=== PATIENT | male | born 1995 | race Caucasian/White ===

== ENCOUNTER 2017-11-04 13:25 | Emergency (ER) | payer MEDICAID, SELFPAY ==
[2017-11-04 13:26] VITALS: BP 139/82; PULSE 86; RESP 18; TEMP 36.6; O2SAT 98; BMI 25.8
--- NOTE | 2017-11-04 14:03 | ED.VISSUMM ---
- ER Visit Summary Date of Service: 11/04/17 Chief Complaint: Blackout History of Present Illness: The patient is a 21 M with a history of epilepsy who presents with a blackout. He does note that he forgot to take his seizure medication last night. He came in and sat down today. He states there is about a 2-3 minute. That he is unable to recall. He denies any complaints currently. No fever chest pain shortness of breath vomiting diarrhea recent illness rashes headaches. He did not bite his tongue. He was not incontinent. Physical Examination: Afebrile vitals are stable Heart regular rate and rhythm Lungs are clear Abdomen soft Alert and oriented with no focal or lateralizing neurological deficits normal strength and sensation Test Results: None indicated Emergency Department Course and Treatment: I suspect the patient's symptoms today were due to a breakthrough seizure. He has normal neurological exam and no complaints currently. He was advised to take his dose of seizure medication when he gets home tonight. He was unable to recall exactly what he takes. He was also advised to follow-up with his neurologist. He understands return for new or worsening symptoms. He was discharged. Treatment Plan: [] Disposition: Discharge Impression: Seizure This note was generated with [employer] dictation software. It may contain incorrect words, spelling, and punctuation that were not noted in review of the chart prior to signing ED Disposition - Plan for ED Patient: Chief Complaint: Seizure Referrals: Care Physician,No Primary [Primary Care Provider] -
--- NOTE | 2017-11-04 14:05 | ED.DEP ---
ED Disposition - Plan for ED Patient: Chief Complaint: Seizure Instructions: ED Seizure Recurrent Referrals: Care Physician,No Primary [Primary Care Provider] -
[2017-11-04 14:27] VITALS: BP 135/79; PULSE 56; RESP 16
== END 2017-11-04 14:29 | disposition home or self-care (01) ==
LOC: ED 14:11
PROVIDERS: Emergency Provider Emergency Medicine
DX: G40.909 Epilepsy, unspecified, not intractable, without status epilepticus (principal); Z72.0 Tobacco use
CPT/HCPCS: 99282

== ENCOUNTER 2019-12-04 00:39 | Emergency (ER) | payer SELFPAY ==
[2019-12-04 00:39] VITALS: BP 155/87; PULSE 90; RESP 18; TEMP 36.4; O2SAT 100; BMI 32.9
[2019-12-04 01:14] LABS: Bacteria 0 SEEN /hpf (None Seen); Color, Urine Yellow (Yellow); Glucose, Dipstick Normal (Normal); Ketone-Dipstick Negative (Negative); Leukocyte Esterase-Dipstick 100 /ul (Negative); Mucous, Urine 0 SEEN /hpf (<or=2+); Nitrite-Dipstick Negative (Negative); Occult Blood-Urine 10 /ul (Negative); Protein-Dipstick 15 mg/dl (Negative); Specific Gravity, Urine 1.025 (1.002-1.030); Squamous Epithelial Cells - UA 0 SEEN /hpf (0-5); Urine Bilirubin Dipstick Negative (Negative); Urine Clarity Clear (Clear); Urine Urobilinogen Normal (Normal)
--- NOTE | 2019-12-04 01:14 | ED.VISSUMM ---
- ER Visit Summary Date of Service: 12/04/19 Chief Complaint: Possible sexually transmitted disease History of Present Illness: The patient is a 24 M who presents with urethral discharge for the past 2 to 3 days. Patient states it is gradually gotten worse. Patient admits to some discomfort while urinating. Patient describes his discharge as white. Patient denies any fevers or chills. Patient denies any nausea or vomiting. Patient denies any testicular pain. Patient denies any urinary urgency or frequency. Physical Examination: Vital signs are stable. Patient is afebrile. Patient is in no acute distress. Oral mucosa is pink and moist. Neck is supple. Trachea is midline. There is no JVD. Heart was regular rate and rhythm. Lungs are clear and equal bilaterally. Abdomen is soft. Bowel sounds are normal. There is no tenderness. Genitourinary exam reveals a circumcised male. There are no penile lesions. There is no testicular tenderness. There is no inguinal tenderness or masses noted. Cranial nerves II through XII are intact. There are no focal motor or sensory deficits. Test Results: Urinalysis was obtained. Leukocyte esterase was 100 with 5-10 white blood cells. GC and Chlamydia cultures were sent. Emergency Department Course and Treatment: Patient was given Rocephin and Zithromax here. Patient was instructed to follow-up with a primary care physician in 5 to 7 days. Patient states he does not have a primary care physician. Patient was provided a primary care physician who is next on-call for unassigned patients. Patient understood and was agreeable with the plan. All questions were answered. Disposition: Discharge home Impression: Urethritis This note was generated with [employer] dictation software. It may contain incorrect words, spelling, and punctuation that were not noted in review of the chart prior to signing ED Disposition - Plan for ED Patient: Disposition: Home or Assisted Living Diagnosis: Urethritis Instructions: ED STI Male Treated Referrals: Hang Faith MD [STAFF PHYSICIAN] - 5-7 Days
[2019-12-04 01:20] LABS: Red Blood Cells-Urine 0-5 SEEN /hpf (0-5); White Blood Cells 5-10 SEEN /hpf (0-5)
[2019-12-04] MEDS: Ceftriaxone 500 MG Vial 250 MG IM (01:38)
[2019-12-04] MEDS: Azithromycin 250 MG Tablet 1000 MG PO (01:38)
[2019-12-04 02:59] LABS: Chlamydia Trachomatis by PCR Negative (Negative); Neisserai gonorrhoeae by PCR Negative (Negative); Probe Check PASS; Sample Adequacy Control PASS; Specimen Processing Control PASS
== END 2019-12-04 02:02 | disposition home or self-care (01) ==
PROVIDERS: Emergency Provider Emergency Medicine
DX: N34.2 Other urethritis (principal); R51 Headache
CPT/HCPCS: 81001; 87491; 87591; 96372; 99283

== ENCOUNTER 2019-12-07 12:16 | Emergency (ER) | payer SELFPAY ==
[2019-12-07 12:17] VITALS: BP 164/105; PULSE 109; RESP 16; TEMP 36.3; O2SAT 100; BMI 30.4
--- NOTE | 2019-12-07 13:00 | ED.DCSUM_ITS ---
- ER Visit Summary Date of Service: 12/07/19 Chief Complaint: Dysuria History of Present Illness: The patient is a 24 M who presents with dysuria that has been constant for the past several days. Patient was seen here 3 days ago and was treated for sexually transmitted disease. Patient was given Rocephin and Zithromax here. Patient had GC and Chlamydia cultures done at that time. Patient states he is still having some discharge and burning with urination. Patient denies any nausea or vomiting. Patient denies any abdominal pain. Patient denies any testicular pain or swelling. Patient states he has had only one sexual partner over the past 3 months. Physical Examination: Vital signs are stable. Patient is afebrile. Patient is in no acute distress. Oral mucosa is pink and moist. Neck is supple. Trachea is midline there is no JVD. Heart was regular rate and rhythm. Lungs are clear and equal bilaterally. Abdomen is soft. Bowel sounds are normal. There is no tenderness. Genitourinary exam shows some mild urethral discharge. There is some mild erythema at the urethral meatus. There are no external penile lesions. There are no ulcerations. There are no testicular masses or tenderness. Test Results: Wet prep was sent for trichomonas and was negative. Emergency Department Course and Treatment: Patient was given a dose of Flagyl here prior to trichomonas results. Patient was given a prescription for Bactrim to cover for other urinary tract infection pathogens. Patient was instructed to follow-up with his primary care physician in 5 to 7 days for reevaluation. Patient was instructed to avoid alcohol. Patient was instructed return if worse in any way. Patient understood and was agreeable with the plan. All questions were answered. Disposition: Discharge home Impression: Urethritis This note was generated with [employer] dictation software. It may contain incorrect words, spelling, and punctuation that were not noted in review of the chart prior to signing ED Disposition - Plan for ED Patient: Disposition: Home or Assisted Living Instructions: ED Urethritis Infec Vs Inflam Adult Male, ED STI Male Treated Prescriptions: Smz/Tmp Ds [Bactrim Ds] 1 tab PO BID #6 tab Prescription Printed Referrals: Hang Faith MD [STAFF PHYSICIAN] - 5-7 Days
[2019-12-07] MEDS: metroNIDAZOLE 500 MG Tablet 2000 MG PO (13:28)
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
[2019-12-07 15:31] LABS: Probe Check PASS; Sample Adequacy Control PASS; Specimen Processing Control PASS; Trichomonas Vag DNA by PCR Negative (Negative)
== END 2019-12-07 15:44 | disposition home or self-care (01) ==
PROVIDERS: Emergency Provider Emergency Medicine
DX: N34.2 Other urethritis (principal)
CPT/HCPCS: 87661; 99283

== ENCOUNTER 2021-03-07 06:56 | Emergency (ER) | payer SELFPAY ==
[2021-03-07 06:57] VITALS: BP 171/99; PULSE 87; RESP 18; TEMP 36.8; O2SAT 95; BMI 34.7
--- NOTE | 2021-03-07 07:08 | EDS_ITS ---
HPI HPI - URI History of Present Illness Chief Complaint: Ear Problem Informant: patient Narrative Narrative: 25-year-old male presents the emergency room with decreased hearing of the left ear and pain. Patient states symptoms began around Wednesday. He had used an earwax removal system and notes continued symptoms of decreased hearing. He states that he frequently had ear infections as a child but did not get tympanostomy tubes. No reported fever. He notes some mild sore throat and rhinorrhea. ROS ROS ED Constitutional Constitutional ED: Denies chills or weight loss Eyes Eyes: Denies change in vision or diplopia ENT ENT ED: Reports ear pain, rhinorrhea, sore throat and other Details: Decreased hearing left ear Cardiovascular Cardiovascular: Denies chest pain, orthopnea, palpitations or racing heartbeat Respiratory/Chest Respiratory/Chest: Denies cough, dyspnea or orthopnea Gastrointestinal Gastrointestinal: Denies abdominal pain, diarrhea, nausea or vomiting Genitourinary Genitourinary ED: Denies dysuria, hematuria or urinary frequency Musculoskeletal Musculoskeletal: Denies arthralgias or myalgias Integumentary Denies abscess or rash Neurologic Neurologic: Denies headache(s) or weakness Psychiatric Psychiatric: Denies anxiety, depression, suicidal ideation or suicidal thoughts Endocrine Endocrinology: Denies polydipsia, polyphagia or polyuria Allergic/Immunologic Allergic/Immunologic ED: Denies mouth swelling, tongue swelling or urticaria PFSH PFSH Medical History no medical history no medical history Home Medications sulfamethoxazole-trimethoprim 1 tab PO BID #6 tab 12/07/19 [Rx Last Taken Unknown] cefdinir 300 mg PO BID #20 cap 03/07/21 [Rx Last Taken Unknown] Allergy/AdvReac Type Severity Reaction Status Date / Time latex Allergy Rash Verified 03/07/21 06:59 Penicillins Allergy Unknown Verified 03/07/21 06:59 Social History (Updated 03/07/21 @ 07:[address] Emmanuel Moran, DO) current gender identity: male Smoking Status: Current every day smoker tobacco type: cigarettes EXAM Physical Exam Const Vital Signs: 03/07/21 06:57 Temperature 98.2 F Temperature Source Temporal Pulse Rate 87 Respiratory Rate 18 Blood Pressure 171/99 H Blood Pressure Mean 123 Pulse Ox 95 Oxygen Delivery Method Room Air Positive well nourished and well developed General Appearance ED: well developed HEENT Reports normocephalic, head/scalp atraumatic and moist mucous membranes HEENT Narrative: Left tympanic membrane is erythematous with evidence of effusion decreased landmarks. normocephalic and atraumatic External Ear: external ears normal and mastoids normal Throat: posterior oropharynx normal Eyes PERRL and EOMs intact bilaterally Neck no lymphadenopathy, supple and no JVD Resp normal respiratory effort and clear to auscultation bilaterally Cardio regular rate, regular rhythm and no murmurs GI normal to inspection, nondistended, normoactive bowel sounds and non-tender Auscultation: normoactive bowel sounds Palpation: soft Back/Spine no CVA tenderness and normal ROM Extremity normal to inspection General Extremety ED: Negative for edema General Extremity: Negative for edema Neuro oriented x3 and CN's II-XII intact bilaterally Sensorium / Orientation: alert Motor Exam: strength 5/5 throughout Psych mental status grossly normal Mood & Affect: Negative for depressed or tearful Skin no rashes or lesions noted and no wounds MDM MDM MDM Narrative Medical decision making narrative: Clinically the patient has a left otitis media will be started on cefdinir. Follow-up with primary care if not improving return if worsening or concerns Discharge Plan Triage Chief Complaint: Ear Problem ED Provider: Emmanuel Moran Dx/Rx/DC Orders Clinical Impression: Acute left otitis media Instructions: ED Otitis Media Antibiotic ... Prescriptions: New cefdinir 300 mg capsule 300 mg PO BID Qty: 20 RF: 0 No Action sulfamethoxazole-trimethoprim 1 TABLET tablet 1 tab PO BID Qty: 6 RF: 0 Primary Care Provider: Care Physician,No Primary Referrals: Care Physician,No Primary [Primary Care Provider] - Saul Mariscal VEHICLE MONITOR TECHNICIAN, VEHICLE MONITOR TECHNICIAN-C [Nurse Practitioner] - As Needed (FOR PRIMARY CARE) Disposition Disposition: Home, Self Care
== END 2021-03-07 07:24 | disposition home or self-care (01) ==
LOC: ED 07:19
PROVIDERS: Emergency Provider Emergency Medicine
DX: H66.92 Otitis media, unspecified, left ear (principal); J02.9 Acute pharyngitis, unspecified; J34.89 Other specified disorders of nose and nasal sinuses; F17.210 Nicotine dependence, cigarettes, uncomplicated
CPT/HCPCS: 99282

== ENCOUNTER 2022-02-26 10:20 | Emergency (ER) | payer BC, SELFPAY ==
[2022-02-26 10:21] VITALS: BP 163/112; PULSE 113; RESP 18; TEMP 37.4; O2SAT 98; BMI 30.4
[2022-02-26] MEDS: Ondansetron ODT 4 MG Tablet PO (11:38)
--- NOTE | 2022-02-26 12:23 | EX.ED.VIS.UR ---
HPI HPI - URI History of Present Illness Chief Complaint: Cough Narrative Narrative: 26-year-old male with cough, fever, chills, body aches for the course of the last week. He states he was in urgent care yesterday and tested for COVID-19 and influenza and these were negative. He states he wants to know what it is exactly have. He is not short of breath. He has some nausea and is vomiting a little bit. He is able to hold down some food and fluids. He states he has no known medical problems. He is not having chest pain or shortness of breath. ROS ROS ED Review of Systems ROS Unobtainable: due to encephalopathy Constitutional Constitutional ED: Reports chills and fever(s) Eyes Eyes: Denies change in vision or diplopia ENT ENT ED: Denies rhinorrhea or sore throat Cardiovascular Cardiovascular: Denies chest pain or palpitations Respiratory/Chest Respiratory/Chest: Denies cough or dyspnea Gastrointestinal Gastrointestinal: Denies abdominal pain Genitourinary Genitourinary ED: Denies dysuria or hematuria Musculoskeletal Musculoskeletal: Denies arthralgias or back pain Integumentary Denies abscess or Abrasions Neurologic Neurologic: Reports headache(s); Denies paresthesias Psychiatric Psychiatric: Denies anxiety or depression PFSH PFSH Home Medications sulfamethoxazole 800 mg-trimethoprim 160 mg tablet 1 tab PO BID #6 tabs 12/07/19 [Rx Last Taken Unknown] cefdinir 300 mg capsule 300 mg PO BID #20 caps 03/07/21 [Rx Last Taken Unknown] ondansetron 4 mg disintegrating tablet 4 mg PO Q8H PRN nausea and vomiting #10 tabs 02/26/22 [Rx Last Taken Unknown] Allergy/AdvReac Type Severity Reaction Status Date / Time latex Allergy Rash Verified 02/26/22 10:21 Penicillins Allergy Unknown Verified 02/26/22 10:21 Social History Smoking Status: Current every day smoker tobacco type: cigarettes EXAM Physical Exam Const Vital Signs: 02/26/22 10:21 02/26/22 12:31 Temperature 99.3 F H Temperature Source Temporal Pulse Rate 113 H 102 H Respiratory Rate 18 18 Blood Pressure 163/112 H 176/110 H Blood Pressure Mean 129 Pulse Ox 98 97 Oxygen Delivery Method Room Air Positive well nourished General Appearance ED: NAD; Negative for pallor HEENT Reports moist mucous membranes normocephalic and atraumatic Throat: posterior oropharynx normal Eyes PERRL and EOMs intact bilaterally Resp normal respiratory effort and clear to auscultation bilaterally Auscultation: Negative for rales, rhonchi or wheezes Cardio Rate: regular rate Rhythm: regular rhythm GI non-tender and non-distended Neuro oriented x3 and CN's II-XII intact bilaterally Sensorium / Orientation: alert Psych mental status grossly normal Skin General Skin Exam: Negative for jaundice or pallor MDM MDM MDM Narrative Medical decision making narrative: Patient presenting with viral syndromes for several days. He is not febrile here. His physical exam is normal. He is slightly tachycardic but he is afebrile. 98% on room air. He requests to know what it is that is caused him to feel this way. I counseled him he already tested negative for COVID and influenza. I did offer him a viral respiratory panel but did education counselor him it would not change the course of therapy. We will still need to treat with Tylenol and ibuprofen alternating. He does express that he has some nausea and was given Zofran for this. He states that this helped tremendously and he is not nauseous anymore. I offered him a chest x-ray to make sure he did not have pneumonia however states he believes his symptoms are likely viral he does not want a chest x-ray. He had he is amenable to Zofran for home and hydration at home. He request a work note for tomorrow. Return precautions were discussed. Impression: 1. Headache 2. Nausea/vomiting 3. Viral syndrome Lab Data Attestation: I reviewed the patient's lab results. Discharge Plan Triage Chief Complaint: Cough Other Complaint: Fever ED Provider: Giuliano Abbasi Dx/Rx/DC Orders Instructions: ED Viral Syndrome (Adult) Prescriptions: New ondansetron 4 mg tablet,disintegrating 4 mg PO Q8H PRN (Reason: nausea and vomiting) Qty: 10 0RF No Action sulfamethoxazole-trimethoprim 1 TABLET tablet 1 tab PO BID Qty: 6 0RF cefdinir 300 mg capsule 300 mg PO BID Qty: 20 0RF Stand Alone Forms: ED Work / School Excuse Primary Care Provider: Care Physician,No Primary Referrals: Marlyn Modi MD [Med Staff - Perf[employer] And Toilet Water Maker] - 3-5 Days Care Physician,No Primary [Primary Care Provider] - Disposition Disposition: Home, Self Care Discharge Date/Time: 02/26/22 12:32
[2022-02-26 12:31] VITALS: BP 176/110; PULSE 102; RESP 18; O2SAT 97
== END 2022-02-26 12:32 | disposition home or self-care (01) ==
PROVIDERS: Emergency Provider Student in an Organized Health Care Education/Training Program; Visit Provider Student in an Organized Health Care Education/Training Program
DX: R51.9 Headache, unspecified (principal); B34.9 Viral infection, unspecified; R11.2 Nausea with vomiting, unspecified; R05.9 Cough, unspecified; R50.9 Fever, unspecified; F17.210 Nicotine dependence, cigarettes, uncomplicated
CPT/HCPCS: 99283

== ENCOUNTER 2023-03-22 04:31 | Emergency (ER) | payer SELFPAY ==
[2023-03-22 04:34] VITALS: BP 168/122; PULSE 96; RESP 16; TEMP 36.8; O2SAT 96; BMI 29.5
[2023-03-22] MEDS: predniSONE 20 MG Tablet 60 MG PO (05:01)
[2023-03-22] MEDS: Ipratropium/Albuterol Sulfate 3 ML AMPUL.NEB INHALATION (05:01)
[2023-03-22] MEDS: guaiFENesin/Codeine 5 ML UDC 10 ML PO (05:01)
[2023-03-22 05:05] VITALS: PULSE 98; RESP 16
--- NOTE | 2023-03-22 05:10 | EX.ED.DYSGE1 ---
HPI History of Present Illness Chief Complaint: Cold Sx Informant: patient Narrative Narrative: Patient is a 27-year-old male with past medical history of smoking and hypertension. He states for approximately 1 week he has had nasal congestion sore throat and cough. He reports that his was recently sick with the flu. He states he was seen in urgent care roughly 1 week ago and he was told to use [id number] medications. He states he has been doing that intermittently but has not had increased cough and ear pain and has concerned that his infection is worsening therefore comes in for evaluation. [facility] Medical History HTN (hypertension) Home Medications albuterol sulfate 90 mcg/actuation aerosol inhaler (Ventolin HFA) 2 puff inhalation Q4H PRN PRN SOB/Wheezing #1 device 03/22/23 [Rx Last Taken Unknown] azelastine 137 mcg (0.1 %) nasal spray aerosol 2 spray intranasal BID #30 mL 03/22/23 [Rx Last Taken Unknown] hydrocodone-homatropine 5 mg-1.5 mg/5 mL (5 mL) oral syrup (Hycodan) 5 ml PO 4X/DAY PRN PRN cough 7 days #140 mL 03/22/23 [Rx Last Taken Unknown] prednisone 20 mg tablet 40 mg (2 x 20 mg) PO DAILY 5 days #10 tabs 03/22/23 [Rx Last Taken Unknown] Allergy/AdvReac Type Severity Reaction Status Date / Time latex Allergy Rash Verified 03/22/23 04:33 Penicillins Allergy Unknown Verified 03/22/23 04:33 Social History Smoking Status: Current every day smoker tobacco type: cigarettes ROS ROS ED Constitutional Constitutional ED: Denies chills or fever(s) ENT ENT ED: Reports rhinorrhea and sore throat Cardiovascular Cardiovascular: Denies chest pain Respiratory/Chest Respiratory/Chest: Reports cough and dyspnea Gastrointestinal Gastrointestinal: Denies abdominal pain, diarrhea, nausea or vomiting Genitourinary Genitourinary ED: Denies dysuria Musculoskeletal Musculoskeletal: Reports myalgias Integumentary Denies rash Neurologic Neurologic: Denies headache(s) Hematologic/Lymphatic Hematologic/Lymphatic: Denies easy bleeding or easy bruising EXAM Physical Exam Const Vital Signs: 03/22/23 04:34 03/22/23 05:05 Temperature 98.2 F Temperature Source Oral Pulse Rate 96 98 Respiratory Rate 16 16 Blood Pressure 168/122 H Blood Pressure Mean 137 Pulse Ox 96 Positive well nourished and well developed General Appearance ED: well developed; Negative for pallor HEENT HEENT Narrative: Nasal mucosa is hyperemic and boggy with enlarged inferior nasal turbinates Bilateral TMs are retracted but show no secondary changes to suggest infection Posterior pharynx displays cobblestoning consistent with sinus drainage without airway edema or compromise Eyes PERRL and EOMs intact bilaterally General Eye ED: Negative for scleral icterus Neck supple and no JVD Neck Narrative: Positive anterior cervical lymphadenopathy noted Resp normal respiratory effort Resp Narrative: Breath sounds are slight diminished throughout with diffuse expiratory wheeze No nasal flaring retractions tachypnea or accessory muscle use Cardio regular rate and regular rhythm Extremity normal to inspection Extremity Narrative: No asymmetric edema no pitting edema negative Homans' sign bilaterally Neuro oriented x3, CN's II-XII intact bilaterally and no sensory deficits noted Sensorium / Orientation: alert Motor Exam: strength 5/5 throughout Psych mental status grossly normal Skin no rashes or lesions noted General Skin Exam: Negative for jaundice or pallor MDM MDM MDM Narrative Medical decision making narrative: Patient presented to the ER hypertensive but has a past medical history of this and otherwise vitals are stable. History is most consistent with a viral upper respiratory tract infection and as was recent diagnosed with influenza this is most likely cause of his symptoms as well. Difficult diagnosis is also for otitis media versus sinusitis versus strep pharyngitis versus pneumonia. Physical exam does not show findings concerning for otitis media or strep and he does not have sinus pain to suggest sinusitis. We discussed a chest x-ray but as patient is satting well and does not have any type of back or chest pain he has low concern for this and does not want an x-ray obtained. He was given prednisone and a DuoNeb secondary to his inflammation and wheeze and did have improvement of breath sounds after treatment. At this time as he is not in respiratory distress or require supplemental oxygen he be given symptomatic medications and is otherwise safe for discharge History & Record Review Discussion w/independent historian: Patient Discharge Plan Triage Chief Complaint: Cold Sx ED Provider: Tony Barreto Dx/Rx/DC Orders Clinical Impression: Viral upper respiratory tract infection with cough, Tobacco use, Hypertension Instructions: ED Influenza (Adult), ED URI, Viral W/ Wheezing (Adult) Prescriptions: New prednisone 20 mg tablet 40 mg PO DAILY 5 Days Qty: 10 0RF azelastine 137 mcg (0.1 %) aerosol,spray 2 spray intranasal BID Qty: 30 0RF Rx Instructions: administer into each nostril albuterol sulfate [Ventolin HFA] 90 mcg/actuation HFA aerosol inhaler 2 puff inhalation Q4H PRN PRN (Reason: SOB/Wheezing) Qty: 1 0RF hydrocodone-homatropine [Hycodan] 5-1.5 mg/5 mL (5 mL) syrup 5 ml PO 4X/DAY PRN PRN (Reason: cough) 7 Days Qty: 140 0RF Stand Alone Forms: ED Work / School Excuse Primary Care Provider: Care Physician,No Primary Referrals: Jerardo Stack MD [Med Staff - Active Staff] - Care Physician,No Primary [Primary Care Provider] - Activity Restrictions/Additional Instructions: Your history and physical exam is consistent with a viral upper respiratory tract infection and this will create symptoms on average for 14 to 21 days. Take the medication that was prescribed as directed control your symptoms and return to the ER should you have any further concerns Disposition Disposition: Home, Self Care
== END 2023-03-22 05:38 | disposition home or self-care (01) ==
PROVIDERS: Emergency Provider Emergency Medicine; Visit Provider Emergency Medicine
DX: J06.9 Acute upper respiratory infection, unspecified (principal); I10 Essential (primary) hypertension; F17.210 Nicotine dependence, cigarettes, uncomplicated; R05.9 Cough, unspecified
CPT/HCPCS: 94640; 99283

== ENCOUNTER 2023-06-25 18:23 | Emergency (ER) | payer SELFPAY ==
[2023-06-25 18:24] VITALS: BP 138/97; PULSE 109; RESP 18; TEMP 36.4; O2SAT 100; BMI 30.4
--- NOTE | 2023-06-25 22:11 | EX.ED.DYSGE1 ---
HPI <THOMAS Palacio - Last Filed: 06/25/23 22:41> History of Present Illness Chief Complaint: Laceration Narrative Narrative: Patient is a 27-year-old male with no significant medical history presents to the emergency department after mechanical fall striking the right side of his head. This fall happened approximately 8 hours ago. Patient denies any LOC. Patient's tetanus vaccination up-to-date. Patient states he had about a 1.5 cm laceration, however he used superglue, however continue to bleed, he does not believe it was put together properly and is here for evaluation. PFSH <THOMAS Palacio - Last Filed: 06/25/23 22:41> PFS Medical History (Updated 06/25/23 @ 22:15 by THOMAS Palacio) Asthma Epilepsy HTN (hypertension) Home Medications azelastine 137 mcg (0.1 %) nasal spray aerosol 2 spray intranasal BID #30 mL 03/22/23 [Rx Last Taken Unknown] odvrjjn-xhfalgiuwaoen-pqeoxoxs 250 mg-250 mg-65 mg tablet (Excedrin Extra Strength) 2 tab PO Q6H PRN headache 06/25/23 [History Last Taken 06/25/23 14:00] Allergy/AdvReac Type Severity Reaction Status Date / Time latex Allergy Rash Verified 03/22/23 04:33 Penicillins Allergy Unknown Verified 03/22/23 04:33 Surgical History (Updated 06/25/23 @ 21:24 by Clarissa Gonzalez) H/O adenoidectomy Hx of tonsillectomy Social History Smoking Status: Former smoker ROS <THOMAS Palacio - Last Filed: 06/25/23 22:41> ROS ED ROS Narrative Constitutional: Negative for fever, chills, weight loss, weakness Eyes: Negative for vision loss, vision change, double vision ENT: Negative for any sore throat, ear pain, congestion Cardiovascular: Negative for any chest pain, tightness, palpitations Respiratory: Negative for any cough, sputum production, hemoptysis, dyspnea, dyspnea on exertion, orthopnea Gastrointestinal: Negative for any abdominal pain, nausea, vomiting, diarrhea, constipation, blood in stool, blood in vomit : Negative for any urinary frequency, dysuria, retention, blood in urine Muscle skeletal: Negative for any neck pain, back pain Neurological: Negative for any headache, syncope, dizziness Skin: Negative for any rashes, itching, abrasions. Positive for laceration to the right eyebrow Psychiatric: Negative for any depression, anxiety, stress, suicidal ideation, homicidal ideation Hematologic: Negative for any excessive bruising, easy bleeding EXAM <THOMAS Palacio - Last Filed: 06/25/23 22:41> Physical Exam Narrative Exam Narrative: Vital signs reviewed. HEET: Head normocephalic atraumatic, TMs clear bilaterally. Posterior pharynx is clear, moist mucous membranes. Nares clear bilaterally. Pupils are equal round reactive to light, negative for hemotympanum, negative for any septal hematoma. Patient does have a 1.5 cm laceration that is horizontal just above the right eyebrow. On my examination, there is a lot of dried glue around the area however the laceration is still open, blood is still oozing from the laceration. Neck: Supple with no lymphadenopathy or tenderness. No signs of meningismus. Cardiac: Regular rate and rhythm no murmurs gallops or rubs, equal peripheral pulses bilaterally. Respiratory: Lungs clear to auscultation bilaterally. No chest tenderness. Abdomen: Soft, nontender, nondistended. No abdominal bruit or pulsatile masses. No hepatosplenomegaly Extremities: No peripheral edema, no signs of gross trauma or deformity. Active full range of motion of all extremities. Neuro: Cranial nerves II through XII intact, no focal neurological deficits. Skin: Clean dry and intact with no rash, purpura, petechiae, vesicles or pustules. Backs/flank: No CVA tenderness, no midline spinal tenderness, no deformity. Psych: Normal mood and affect. No SI, HI or acute psychosis. Const Vital Signs: 06/25/23 18:24 06/25/23 22:23 06/25/23 22:23 Temperature 97.6 F L 98.6 F Temperature Source Temporal Pulse Rate 109 H 63 87 Respiratory Rate 18 14 16 Blood Pressure 138/97 H 125/80 H Blood Pressure Mean 110 95 Pulse Ox 100 100 100 Oxygen Delivery Method Room Air Room Air <Dr. Salvador Zepeda MD - Last Filed: 06/26/23 01:03> Physical Exam Const Vital Signs: 06/25/23 18:24 06/25/23 22:23 06/25/23 22:23 Temperature 97.6 F L 98.6 F Temperature Source Temporal Pulse Rate 109 H 63 87 Respiratory Rate 18 14 16 Blood Pressure 138/97 H 125/80 H Blood Pressure Mean 110 95 Pulse Ox 100 100 100 Oxygen Delivery Method Room Air Room Air [facility] <Jearrdo LentzTHOMAS - Last Filed: 06/25/23 22:41> [facility] Treatment and Re-Evaluation :: Patient appears generally well, patient appears nontoxic, vital signs are stable. Patient presents to the emergency department with complaints of a laceration to the right eyebrow. Patient did try to superglue the area however it was not working. Patient's tetanus vaccination is up-to-date. I was able to anesthetize the area, I was able to copiously scrub and irrigate, was able to get most of the glue off. I was unable to place 4 simple interrupted sutures of 5-0 Ethilon. Edges approximated nicely. Patient will have these removed in 7 days. He instructed to ice the area, keep the area clean and dry. All questions were answered, patient stable for discharge. <Dr. Salvador Zepeda MD - Last Filed: 06/26/23 01:03> [facility] Narrative Medical decision making narrative: I have personally performed a face to face assessment of the patient and have reviewed the SUNITA Note. I performed a substantive portion of the visit including all aspects of the following. My moseley findings include: History is remarkable for fall with laceration proximal lateral right brow. Patient did not have loss conscious. He is not amnestic. He is not on antithrombotic or anticoagulant. He denies double vision, blurred vision loss of vision. He denies headache. He denies neck pain. He denies paresthesia, anesthesia moderate to his. Exam is patient has a laceration that is approximately 2 cm in length. There is no palpable depression. There is no step-off of the orbital rim. There is no hyperesthesia of the informal nerve. Pupil equal round reactive. Extract muscle intact. There is no subconjunctival hemorrhage. No clinical findings of basilar skull fracture. Full active range of motion at the neck. There is no pain outpatient posteriorly. Alert oriented x 3. Cranials 2 through 12 are intact. Medical Decision Making patient has laceration which will require repair. This was repaired by the nurse practitioner under my supervision. Other additions or changes: [None] Discharge Plan Triage Chief Complaint: Laceration ED Midlevel Provider: Jerardo Lentz ED Provider: Salvador Zepeda Dx/Rx/DC Orders Clinical Impression: Face lacerations, Fall Instructions: ED Laceration Minimize Scars, ED Wound Check (No Infection) Prescriptions: No Action azelastine 137 mcg (0.1 %) aerosol,spray 2 spray intranasal BID Qty: 30 0RF Rx Instructions: administer into each nostril Excedrin Extra Strength 250-250-65 mg tablet 2 tab PO Q6H PRN (Reason: headache) Primary Care Provider: Care Physician,No Primary Referrals: Care Physician,No Primary [Primary Care Provider] - Activity Restrictions/Additional Instructions: You have 4 sutures to the right eyebrow. Have these removed in 7 days. Keep clean and dry. You may shower to perform all your daily activities. Disposition Disposition: Home, Self Care Discharge Date/Time: 06/25/23 22:38
[2023-06-25 22:23] VITALS: BP 125/80; PULSE 63; PULSE 87; RESP 14; RESP 16; TEMP 37; O2SAT 100
== END 2023-06-25 22:38 | disposition home or self-care (01) ==
PROVIDERS: Emergency Provider Emergency Medicine; Visit Provider Emergency Medicine
DX: S01.111A Laceration without foreign body of right eyelid and periocular area, initial encounter (principal); G40.909 Epilepsy, unspecified, not intractable, without status epilepticus; Z87.891 Personal history of nicotine dependence; I10 Essential (primary) hypertension; J45.909 Unspecified asthma, uncomplicated; Z79.899 Other long term (current) drug therapy; W19.XXXA Unspecified fall, initial encounter
CPT/HCPCS: 12011; 99283

== ENCOUNTER 2024-12-04 09:02 | Emergency (ER) | payer SELFPAY ==
[2024-12-04 09:03] VITALS: BP 205/133; PULSE 110; RESP 18; TEMP 37; O2SAT 98; BMI 33.7
--- NOTE | 2024-12-04 09:58 | EX.ED.VIS.UR ---
HPI HPI - URI History of Present Illness Chief Complaint: Cold Sx Informant: patient Onset/Context/Timing Onset: Weeks (1) Context: Gradual Onset Timing: Continuous Quality: Tired Location: Generalized Worsened by: - (Nothing) Relieved by: - (Nothing) Associated Symptoms Associated Symptoms: Positive for Nasal Congestion, Sinus Pressure, Myalgias, Nausea, Diarrhea and Productive Cough (Yellow sputum); Negative for Headache, Shortness of Breath, Chest Pain, Nonproductive cough or Hemoptysis Narrative Narrative: Patient presents with cough, congestion, and fatigue that has been constant for the past week. Patient just is gradually getting worse. Patient states he is now starting to cough up some yellow sputum. Patient also admits to some nausea, vomiting, and diarrhea. Patient admits to some general myalgias. Patient also admits to some nasal congestion and sinus pressure. Patient denies any fevers or chills. Patient denies any chest pain or shortness of breath. Patient states he has been taking DayQuil with some relief. ROS ROS ED Constitutional Constitutional ED: Denies chills or fever(s) Eyes Eyes: Denies blurry vision or change in vision ENT ENT ED: Denies rhinorrhea or sore throat Cardiovascular Cardiovascular: Denies chest pain or palpitations Respiratory/Chest Respiratory/Chest: Reports cough; Denies dyspnea Gastrointestinal Gastrointestinal: Reports diarrhea, nausea and vomiting Genitourinary Genitourinary ED: Denies dysuria or hematuria Musculoskeletal Musculoskeletal: Reports myalgias; Denies back pain or neck pain Integumentary Denies abscess or rash Neurologic Neurologic: Denies headache(s) or weakness Allergic/Immunologic Allergic/Immunologic ED: Denies mouth swelling or urticaria [facility] Medical History Asthma Epilepsy HTN (hypertension) Home Medications ?Medication ?Instructions ?Recorded ?Last Taken ?Type azelastine 137 mcg (0.1 %) nasal 2 spray intranasal BID #30 mL 03/22/23 Unknown Rx spray qepkyam-wvnuwmfoyhqpo-fzqymotn 250 2 tab PO Q6H PRN headache 06/25/23 06/25/23 14:00 History mg-250 mg-65 mg tablet (Excedrin Extra Strength) lisinopril 10 mg tablet 10 mg PO DAILY #20 tabs 12/04/24 Unknown Rx Allergy/AdvReac Type Severity Reaction Status Date / Time latex Allergy Rash Verified 03/22/23 04:33 Penicillins Allergy Unknown Verified 03/22/23 04:33 Surgical History H/O adenoidectomy Hx of tonsillectomy Social History (Updated 12/04/24 @ 10:[address] Jesus Monteiro DO) Smoking Status: Current every day smoker tobacco type: cigarettes and e-cigarettes EXAM Physical Exam Const Vital Signs: 12/04/24 09:02 12/04/24 09:03 12/04/24 10:49 Temperature 98.6 F Temperature Source Oral Pulse Rate 110 H Respiratory Rate 18 Respiratory Effort Normal Non-Labored Respiratory Pattern Normal Blood Pressure 205/133 H 203/126 H Blood Pressure Mean 157 151 Pulse Ox 98 Oxygen Delivery Method Room Air Positive well nourished and well developed Constitutional Narrative: BMI is 33.7. General Appearance ED: well developed and NAD HEENT Reports moist mucous membranes normocephalic and atraumatic Face and Sinus: Negative for sinus tenderness Neck supple and no JVD Resp normal respiratory effort and clear to auscultation bilaterally Cardio Rate: regular rate Rhythm: regular rhythm GI non-tender and non-distended Palpation: soft Extremity normal to inspection General Extremety ED: Negative for tenderness Neuro oriented x3, CN's II-XII intact bilaterally and no sensory deficits noted Sensorium / Orientation: alert Motor Exam: strength 5/5 throughout Psych mental status grossly normal MDM MDM MDM Narrative Medical decision making narrative: Differential diagnosis includes pneumonia, bronchitis, viral upper respiratory infection, hypertensive urgency, and dehydration. Chest x-ray will be obtained to assess for pneumonia and bronchitis. COVID-19, influenza, RSV PCR will be obtained to assess for viral illness. Comprehensive metabolic profile will be obtained to assess for electrolyte abnormality, hepatic function, and renal function. Lab Data Attestation: I reviewed the patient's lab results. Lab results narrative: Comprehensive metabolic profile was reviewed and was within normal limits. COVID-19 PCR was reviewed and was negative. Influenza PCR was reviewed and was negative for influenza A and influenza B. RSV PCR was reviewed and was negative. Labs: Laboratory Results - last 24 hr 12/04/24 10:15 Sodium 138 Potassium 3.8 Chloride 103 Carbon Dioxide 23.4 Anion Gap 12 BUN 15 Creatinine 1.18 Estim Creat Clear Calc 107.52 Est GFR (MDRD) Non-Af 85 BUN/Creatinine Ratio 12.7 Glucose 104 H Calcium 9.4 Total Bilirubin 0.37 AST 21 ALT 25 Alkaline Phosphatase 63 Total Protein 7.0 Albumin 4.2 Globulin 2.8 Albumin/Globulin Ratio 1.5 Radiography Chest X-Ray - ED: 2 View, Read by ED Physician, Read by Radiologist and No Acute Disease Diagnostic Testing: Clinical Impression(s) from Imaging Studies Chest X-Ray 12/04/24 10:07 IMPRESSION: No acute process is identified in the chest. [facility] and lateral chest x-ray was obtained. There are 2 views. On my independent interpretation, lung bowie are clear. There is normal cardiac silhouette. Bony thorax is normal. There is no acute process noted. Radiologist also interpreted the x-ray and agrees. Treatment and Re-Evaluation Narrative: Patient was given a dose of hydralazine here. Patient's blood pressure remained elevated. Patient was given a dose of clonidine. Patient's blood pressure improved after this. Patient was given prescription for lisinopril. Patient was instructed to follow-up with his primary care physician in 3 to 5 days for further evaluation of his blood pressure. Patient was advised that if his upper respiratory symptoms are likely from a viral etiology. Patient was instructed to return if worse in any way. Patient understood and was agreeable with the plan. All questions were answered. Discharge Plan Triage Chief Complaint: Cold Sx ED Provider: Jesus Monteiro Dx/Rx/DC Orders Clinical Impression: Viral URI, Elevated blood pressure reading Instructions: ED Hypertension, To Be Confirmed, ED URI, Viral, No Abx (Adult) Prescriptions: New lisinopril 10 mg tablet 10 mg PO DAILY Qty: 20 0RF No Action azelastine 137 mcg (0.1 %) aerosol,spray 2 spray intranasal BID Qty: 30 0RF Rx Instructions: administer into each nostril Excedrin Extra Strength 250-250-65 mg tablet 2 tab PO Q6H PRN (Reason: headache) Primary Care Provider: Care Physician,No Primary Referrals: Care Physician,No Primary [Primary Care Provider] - Jesus Gonzalez MD [[facility]] - 5-7 Days Activity Restrictions/Additional Instructions: You may take Coricidin HBP as needed for upper respiratory congestion. Do not take any other becp-szr-fvwoykm decongestants as this may affect your blood pressure. Print Language: Qatari Disposition Disposition: Home, Self Care
--- NOTE | 2024-12-04 10:07 | RAD_ITS ---
PROCEDURE: CHEST PA AND LATERAL 12/04/2024 REASON FOR EXAM: COUGH TECHNIQUE: CHEST PA AND LATERAL COMPARISON: None FINDINGS: Heart size and mediastinal configuration are within normal limits. There is no focal infiltrate or consolidation. There is no pneumothorax or effusion. There is no acute bony abnormality. There is no visible atherosclerosis. RAD/Chest PA and Lateral IMPRESSION: No acute process is identified in the chest. Reading Location: [facility]
[2024-12-04 10:49] VITALS: BP 203/126
[2024-12-04 11:12] LABS: AST(SGOT) 21 U/L (<=37); Alanine Aminotransfer ALT/SGPT 25 U/L (<=46); Albumin, Serum 4.2 g/dL (3.5-5.0); Alkaline Phosphatase 63 U/L (40-129); Anion Gap 12 (5-15); BUN 15 mg/dL (4-19); BUN/Creat Ratio 12.7 RATIO (10-20); Calcium,Total 9.4 mg/dL (7.6-11.0); Carbon Dioxide 23.4 mmol/L (21.0-32.0); Chloride 103 mmol/L (98-108); Estimated Creatinine Clearance 107.52 ml/min (50-250); Globulin 2.8 g/dL (2.2-4.2); Glucose 104 mg/dL (70-99); Potassium 3.8 mmol/L (3.3-5.1)
[2024-12-04 12:57] VITALS: BP 156/101
[2024-12-04 12:58] VITALS: BP 156/101; PULSE 110; RESP 18; TEMP 37; O2SAT 98
== END 2024-12-04 12:58 | disposition home or self-care (01) ==
PROVIDERS: Emergency Provider Emergency Medicine; Visit Provider Emergency Medicine
DX: J06.9 Acute upper respiratory infection, unspecified (principal); R03.0 Elevated blood-pressure reading, without diagnosis of hypertension; F17.210 Nicotine dependence, cigarettes, uncomplicated; F17.290 Nicotine dependence, other tobacco product, uncomplicated
CPT/HCPCS: 71046; 80048; 80053; 87631; 96374; 99283; A4216